=== PATIENT | female | born 1975 | race Caucasian/White ===

== ENCOUNTER 2017-07-30 17:27 | Emergency (ER) | payer MEDICAID ==
[2017-07-30 18:01] LABS: APPEARANCE CLOUDY (CLEAR); BILIRUBIN NEGATIVE (NEGATIVE); COLOR YELLOW (YELLOW); GLUCOSE NEGATIVE (NEGATIVE); KETONE NEGATIVE (NEGATIVE); NITRITE NEGATIVE (NEGATIVE); PROTEIN TRACE mg/dL (NEGATIVE); SPECIFIC GRAVITY 1.025 (1.005-1.020); UROBILINOGEN NORMAL (NORMAL)
[2017-07-30 18:04] LABS: BACTERIA MANY /hpf (NONE SEEN); MUCUS <1+ /lpf (NONE SEEN); RED CELLS - URINE OCC /hpf (0-5)
[2017-07-30 19:07] LABS: UDS - AMPHET NEGATIVE QUAL (NEGATIVE); UDS - BARB NEGATIVE QUAL (NEGATIVE); UDS - BENZO NEGATIVE QUAL (NEGATIVE); UDS - COCAINE NEGATIVE QUAL (NEGATIVE); UDS - OPIATE POSITIVE QUAL (NEGATIVE); UDS - PCP NEGATIVE QUAL (NEGATIVE); UDS - THC NEGATIVE QUAL (NEGATIVE)
[2017-07-30 19:30] LABS: BASOPHILS 0.2 % (0-2); EOSINOPHILS 0.4 % (0-7); HEMATOCRIT 37.6 % (36.0-48.0); HEMOGLOBIN 12.8 g/dL (12-16); LYMPHOCYTES 21.6 % (15-50); MCH 31.4 pg (26.0-34.0); MCV 92.2 fL (80.0-100.0); MEAN PLATELET VOLUME 10.4 fL (7.4-10.4); MONOCYTES 5.1 % (2-11); NEUTROPHILS 72.7 % (40-80); PLATELET COUNT 218 10x3/uL (130-400); RBC 4.08 10x6/uL (4.00-5.40); RDW 13.3 % (11.5-14.5); WBC 5.3 10x3/uL (4.8-10.8)
[2017-07-30 19:42] LABS: ALBUMIN 4.1 g/dL (3.4-5.0); ALKALINE PHOSPHATASE 73 U/L (46-116); ALT (SGPT) 30 U/L (10-68); AMYLASE - SERUM 42 U/L (25-115); BILIRUBIN - TOTAL 0.51 mg/dL (0.2-1.3); CALC OSMOLALITY 279 mosm/kg (275-300); CALCIUM 9.4 mg/dL (8.5-10.1); CARBON DIOXIDE 27.6 mmol/L (21.0-32.0); CHLORIDE - SERUM 105 mmol/L (98-107); CREATININE - SERUM 0.8 mg/dL (0.6-1.3); GLUCOSE 87 mg/dL (74-106); LIPASE 152 U/L (73-393); POTASSIUM - SERUM 4.1 mmol/L (3.5-5.1); PROTEIN - SERUM 7.7 g/dL (6.4-8.2); SODIUM 141 mmol/L (136-145); UREA NITROGEN 12 mg/dL (7-18); eGFR NON AFRICAN AMERICAN 84 mL/min (90-120)
== END 2017-07-30 22:03 | disposition home or self-care (01) ==
LOC: D.ER 17:27
PROVIDERS: Emergency Medicine; Family Medicine
DX: N39.0 Urinary tract infection, site not specified (principal); I10 Essential (primary) hypertension

== ENCOUNTER 2018-01-13 20:15 | Emergency (ER) | payer BC | END 2018-01-13 23:05 | disposition home or self-care (01) | LOC: D.ER 20:15 | DX: S99.922A Unspecified injury of left foot, initial encounter (principal); W22.8XXA Striking against or struck by other objects, initial encounter; Y93.89 Activity, other specified; Y92.019 Unspecified place in single-family (private) house as the place of occurrence of the external cause ==

== ENCOUNTER → 2018-08-06 16:47 | Outpatient (CLI) | payer BC | END | disposition home or self-care (01) | LOC: D.MAMMO 07-27 10:30 | DX: R92.8 Other abnormal and inconclusive findings on diagnostic imaging of breast (principal) ==

== ENCOUNTER → 2019-02-05 18:44 | Outpatient (CLI) | payer BC | END | disposition home or self-care (01) | LOC: D.MAMMO 18:44 | DX: R92.8 Other abnormal and inconclusive findings on diagnostic imaging of breast (principal) ==

== ENCOUNTER 2020-04-30 09:55 | Emergency (ER) | payer SELFPAY ==
[~2020-04-30] VITALS: Ht 175.3 cm; Wt 87.3 kg
[2020-04-30 10:03] VITALS: Ht 175.3 cm; Wt 87.3 kg
[2020-04-30] MEDS ORDERED: TREXALL5 MG PO (10:04)
[2020-04-30] MEDS ORDERED: AMBIEN5 MG PO (10:05)
[2020-04-30] MEDS ORDERED: FOLIC ACID1 MG PO (10:05)
[2020-04-30] MEDS ORDERED: CELEXA10 MG PO (10:05)
[2020-04-30] MEDS ORDERED: ALTACE10 MG PO (10:05)
[2020-04-30] MEDS ORDERED: UNK BP MED (10:09)
[2020-04-30 10:41] LABS: BASOPHILS 0.1 % (0-2); EOSINOPHILS 0.4 % (0-7); HEMATOCRIT 41.8 % (36.0-48.0); IMMATURE GRANULOCYTES 0.1 % (0-5); LYMPHOCYTES 11.1 % (15-50); MCH 29.5 pg (26.0-34.0); MCHC 33.5 g/dL (31.0-37.0); MCV 88.2 fL (80.0-100.0); MEAN PLATELET VOLUME 10.1 fL (7.4-10.4); MONOCYTES 3.4 % (2-11); NEUTROPHILS 84.9 % (40-80); PLATELET COUNT 219 10x3/uL (130-400); RBC 4.74 10x6/uL (4.00-5.40); RDW 12.5 % (11.5-14.5); WBC 7.7 10x3/uL (4.8-10.8)
[2020-04-30 10:48] LABS: CALC OSMOLALITY 279 mosm/kg (275-300); CALCIUM 9.4 mg/dL (8.5-10.1); CARBON DIOXIDE 27.7 mmol/L (21.0-32.0); CHLORIDE - SERUM 102 mmol/L (98-107); CREATININE - SERUM 0.9 mg/dL (0.6-1.3); GLUCOSE 111 mg/dL (74-106); POTASSIUM - SERUM 3.4 mmol/L (3.5-5.1); SODIUM 139 mmol/L (136-145); UREA NITROGEN 14 mg/dL (7-18); eGFR NON AFRICAN AMERICAN 72 mL/min (90-120)
[2020-04-30 10:55] LABS: APTT 30.1 SECONDS (22.8-39.4); INR 0.98 (0.85-1.17); PROTIME 12.9 SECONDS (11.6-15.0)
[2020-04-30 11:05] LABS: ALBUMIN 4.5 g/dL (3.4-5.0); ALKALINE PHOSPHATASE 89 U/L (30-120); ALT (SGPT) 30 U/L (10-68); BILIRUBIN - TOTAL 0.56 mg/dL (0.2-1.3); CKMB 1.6 U/L (0.0-3.6); CREATINE KINASE 148 UL (21-215); MAGNESIUM - SERUM 2.2 mg/dL (1.8-2.4); PROTEIN - SERUM 7.9 g/dL (6.4-8.2)
[2020-04-30 11:06] LABS: TROPONIN-I < 0.017 ng/mL (0.000-0.060)
[2020-04-30 11:52] LABS: AMORPHOUS SEDIMENT >1+ /lpf (NONE SEEN); BACTERIA FEW /hpf (NEGATIVE); BILIRUBIN NEGATIVE (NEGATIVE); EPITHELIAL CELLS OCC /hpf (0-5); GLUCOSE NEGATIVE (NEGATIVE); KETONE NEGATIVE (NEGATIVE); NITRITE NEGATIVE (NEGATIVE); RED CELLS - URINE RARE /hpf (0-5); UROBILINOGEN NORMAL (NORMAL); WHITE CELLS - URINE OCC /hpf (NEGATIVE)
[2020-04-30] MEDS ORDERED: CATAPRES0.1 MG PO (12:23)
[2020-04-30] MEDS ORDERED: MACROBID100 MG PO (12:32)
[2020-04-30 13:28] VITALS: BP 120/79
== END 2020-04-30 13:29 | disposition home or self-care (01) ==
LOC: D.ER 09:55
PROVIDERS: Family Medicine
DX: I10 Essential (primary) hypertension (principal); N39.0 Urinary tract infection, site not specified; R42 Dizziness and giddiness; R11.2 Nausea with vomiting, unspecified

== ENCOUNTER 2021-03-20 14:21 | Emergency (ER) | payer BC ==
[~2021-03-20] VITALS: Ht 175.3 cm; Wt 93.2 kg
[~2021-03-20 14:21] MED LIST: ALTACE10 MG PO; AMBIEN5 MG PO; CATAPRES0.1 MG PO; CELEXA10 MG PO; FLOMAX0.4 MG PO; FOLIC ACID1 MG PO; HYDROCODON-ACE1 EA10 PO; KEFLEX500 MG PO; MACROBID100 MG PO; TREXALL5 MG PO; UNK BP MED; ZOFRAN ODT4 MG/UDTAB PO
[2021-03-20 14:26] VITALS: Ht 175.3 cm; Wt 93.2 kg
[2021-03-20 14:44] LABS: BASOPHILS 0.5 % (0-2); EOSINOPHILS 0.9 % (0-7); HEMATOCRIT 38.5 % (36.0-48.0); HEMOGLOBIN 13.3 g/dL (12-16); MCH 30.5 pg (26.0-34.0); MCHC 34.5 g/dL (31.0-37.0); MCV 88.3 fL (80.0-100.0); MEAN PLATELET VOLUME 7.8 fL (7.4-10.4); NEUTROPHILS 72.6 % (40-80); RBC 4.36 10x6/uL (4.00-5.40); WBC 5.9 10x3/uL (4.8-10.8)
[2021-03-20 14:45] LABS: PLATELET COUNT 292 10x3/uL (130-400)
[2021-03-20 14:54] LABS: CALC OSMOLALITY 282 mosm/kg (275-300); CALCIUM 9.2 mg/dL (8.5-10.1); CARBON DIOXIDE 26.2 mmol/L (21.0-32.0); CHLORIDE - SERUM 105 mmol/L (98-107); GLUCOSE 121 mg/dL (74-106); POTASSIUM - SERUM 3.6 mmol/L (3.5-5.1); SODIUM 141 mmol/L (136-145); UREA NITROGEN 14 mg/dL (7-18); eGFR NON AFRICAN AMERICAN 64 mL/min (90-120)
[2021-03-20 15:03] LABS: ALBUMIN 4.3 g/dL (3.4-5.0); ALKALINE PHOSPHATASE 108 U/L (30-120); ALT (SGPT) 30 U/L (10-68); AMYLASE - SERUM 49 U/L (25-115); BILIRUBIN - TOTAL 0.28 mg/dL (0.2-1.3); LIPASE 184 U/L (73-393); PROTEIN - SERUM 7.5 g/dL (6.4-8.2)
[2021-03-20 15:11] LABS: TROPONIN-I < 0.017 ng/mL (0.000-0.060)
[2021-03-20 16:16] LABS: BILIRUBIN NEGATIVE (NEGATIVE); KETONE NEGATIVE (NEGATIVE); NITRITE NEGATIVE (NEGATIVE); UROBILINOGEN NORMAL mg/dL (< 2)
[2021-03-20 16:22] LABS: SQUAMOUS EPITHELIAL 0-5 HPF (0-4)
[2021-03-20 16:23] LABS: AMORPHOUS SEDIMENT MODERATE LPF (NONE SEEN); BACTERIA FEW HPF (NONE SEEN)
[2021-03-20] MEDS ORDERED: CEPHALEXIN500 M1 PO (16:48)
[2021-03-20] MEDS ORDERED: HYDROCODON-ACE1 EAC7 PO (16:48)
[2021-03-20] MEDS ORDERED: FLOMAX0.4 MG PO (16:48)
[2021-03-20] MEDS ORDERED: ZOFRAN ODT4 MG/UDTAB PO (16:48)
[2021-03-20 17:09] VITALS: BP 162/73
== END 2021-03-20 17:11 | disposition home or self-care (01) ==
LOC: D.ER 14:21
PROVIDERS: Family Medicine
DX: N13.39 Other hydronephrosis (principal); R10.32 Left lower quadrant pain; N20.2 Calculus of kidney with calculus of ureter; N39.0 Urinary tract infection, site not specified; I10 Essential (primary) hypertension